=== PATIENT | male | born 1980 | race Caucasian/White ===

== ENCOUNTER 2017-09-19 21:06 | Emergency (ER) | payer MEDICAID ==
[~2017-09-19] VITALS: Ht 172.7 cm; Wt 59.1 kg
[2017-09-19] MEDS ORDERED: ibuprofen tablet 400 MG TABLET PO ONE (21:15)
[2017-09-19] MEDS ORDERED: acetaminophen 325mg tablet PO ONE (21:15)
[2017-09-19] MEDS ORDERED: HYDROcodone/acetaminophen 10/325mg tab PO ONE (21:45)
[2017-09-19] MEDS ORDERED: ondansetron 4mg rapidly disintigrating tab PO ONE (21:45)
[2017-09-19] MEDS ORDERED: IBUP-1986 PO (21:55)
[2017-09-19] MEDS ORDERED: ONDA4TAB12 PO (21:55)
[2017-09-19] MEDS ORDERED: HYDR-3965 PO (21:55)
[2017-09-19 22:20] VITALS: BP 124/86
== END 2017-09-19 22:23 | disposition home or self-care (01) ==
LOC: ER 21:06
DX: S92.001A Unspecified fracture of right calcaneus, initial encounter for closed fracture (principal); Z79.899 Other long term (current) drug therapy; W17.89XA Other fall from one level to another, initial encounter; Y93.89 Activity, other specified; Y92.89 Other specified places as the place of occurrence of the external cause; Y99.8 Other external cause status
CPT/HCPCS: 29515; 73610; 73650; 99284

== ENCOUNTER 2017-09-25 13:40 | Outpatient (CLI) | payer MEDICAID ==
[~2017-09-25] VITALS: Ht 172.7 cm; Wt 100.1 kg
[~2017-09-25 13:40] MED LIST: HYDR-3965 PO; IBUP-1986 PO; ONDA4TAB12 PO
[2017-09-25 14:12] VITALS: BP 135/77
== END 2017-09-25 14:55 | disposition home or self-care (01) ==
LOC: ORTHO 13:40
PROVIDERS: ATTEND Nurse Practitioner Family
DX: S92.041A Displaced other fracture of tuberosity of right calcaneus, initial encounter for closed fracture (principal); F17.200 Nicotine dependence, unspecified, uncomplicated; F41.9 Anxiety disorder, unspecified; Z56.0 Unemployment, unspecified; Z79.899 Other long term (current) drug therapy; X58.XXXA Exposure to other specified factors, initial encounter; Y93.89 Activity, other specified; Y92.89 Other specified places as the place of occurrence of the external cause; Y99.8 Other external cause status
CPT/HCPCS: 99213; A6449

== ENCOUNTER 2017-09-29 20:16 | Emergency (ER) | payer MEDICAID ==
[~2017-09-29] VITALS: Ht 591.1 cm; Wt 99.0 kg
[2017-09-29 20:25] VITALS: BP 151/83
[2017-09-29] MEDS ORDERED: CEPH500C5 PO (21:02)
[2017-09-29] MEDS ORDERED: HYDR-569 PO (21:02)
[2017-09-29] MEDS ORDERED: IBUP-1986 PO (21:02)
[2017-09-29] MEDS ORDERED: SULF1TAB49 PO (21:02)
== END 2017-09-29 21:39 | disposition home or self-care (01) ==
LOC: ER 20:17
DX: S92.001A Unspecified fracture of right calcaneus, initial encounter for closed fracture (principal); L03.115 Cellulitis of right lower limb; G62.9 Polyneuropathy, unspecified; F17.200 Nicotine dependence, unspecified, uncomplicated; Z87.442 Personal history of urinary calculi; Z86.14 Personal history of Methicillin resistant Staphylococcus aureus infection; Z56.0 Unemployment, unspecified; Z79.899 Other long term (current) drug therapy; W01.0XXA Fall on same level from slipping, tripping and stumbling without subsequent striking against object, initial encounter; Y93.89 Activity, other specified; Y92.89 Other specified places as the place of occurrence of the external cause; Y99.8 Other external cause status
CPT/HCPCS: 29515; 73630; 99284; A6449

== ENCOUNTER 2017-10-05 11:33 | Observation (INO) | payer MEDICAID ==
[~2017-10-05] VITALS: Ht 152.4 cm; Wt 8.0 kg
[2017-10-05] VITALS (16 sets, daily range): BP systolic 102–131; BP diastolic 52–88
[~2017-10-05 11:33] MED LIST changes: +CEPH500C5 PO; +Cefazolin 2GM/50ML dext iso,osmotic IVPB IV ONE; +HYDR-569 PO; +SULF1TAB49 PO; +albuterol 2.5 MG/3 ML nebule NEB ONE; +famotidine 20mg tablet PO ONE; +ringers solution, lacted 1,000 ML IV SCH; +vancomycin inj 1,500 MG in normal saline 300ml IV soln IV ONE
[2017-10-05 12:21] LABS: BASOPHILS % (AUTO) 0.5 % (0-1); EOSINOPHILS # (AUTO) 0.1 X10'3 (0-0.9); EOSINOPHILS % (AUTO) 1.8 % (0-6); HEMATOCRIT 43.4 % (42.0-52.0); HEMOGLOBIN 15.1 g/dl (14.0-17.9); LYMPHOCYTES # (AUTO) 1.8 X10'3 (1.1-4.8); LYMPHOCYTES % (AUTO) 24.9 % (21-51); MEAN CORPUSCULAR HEMOGLOBIN 31.9 PG (27.0-31.0); MEAN CORPUSCULAR HGB CONC 34.9 % (33.0-36.5); MEAN CORPUSCULAR VOLUME 91.4 FL (78-98); MEAN PLATELET VOLUME 6.9 FL (7.4-10.4); MONOCYTES # (AUTO) 0.7 X10'3 (0-0.9); MONOCYTES % (AUTO) 9.8 % (2-12); NEUTROPHILS # (AUTO) 4.5 X10'3 (1.8-7.7); PLATELET COUNT 328 X10'3 (140-440); RED BLOOD COUNT 4.74 X10'6 (4.70-6.10); RED CELL DISTRIBUTION WIDTH 13.5 % (11.5-14.5); WHITE BLOOD COUNT 7.2 X10'3 (4.5-11.0)
[2017-10-05 12:31] LABS: INR 1.1 INR; PRE OP PARTIAL THROMB. TIME 26 SECONDS (22-35); PROTHROMBIN TIME 11.4 SECONDS (9.0-12.0)
[2017-10-05 12:35] LABS: ALANINE AMINOTRANSFERASE 43 U/L (12-78); ALBUMIN 4.3 G/DL (3.4-5.0); ALBUMIN/GLOBULIN RATIO 1.1 (1.1-1.5); ALKALINE PHOSPHATASE 92 IU/L (46-116); ANION GAP 11 (8-16); ASPARTATE AMINO TRANSFERASE 23 U/L (10-37); BILIRUBIN,TOTAL 0.7 MG/DL (0.1-1.0); BLOOD UREA NITROGEN 20 MG/DL (7-18); BUN/CREATININE RATIO 15.3 (5.4-32.0); CALCIUM 9.2 MG/DL (8.5-10.1); CHLORIDE 101 MMOL/L (99-107); CREATININE 1.31 MG/DL (0.60-1.10); GLUCOSE 112 MG/DL (70-104); POTASSIUM 3.9 MMOL/L (3.5-5.1); SODIUM 134 MMOL/L (135-145); TOTAL CARBON DIOXIDE 22.5 MMOL/L (24-32); TOTAL PROTEIN 8.2 G/DL (6.4-8.2); eGFR 61 ML/MIN
[2017-10-05] MEDS ORDERED: LIDOcaine 1% (10mg/ml) 2ml vial ONE (12:38)
[2017-10-05] MEDS ORDERED: CEPH-572 PO (12:39)
[2017-10-05] MEDS ORDERED: HYDR-569 PO (12:41)
[2017-10-05] MEDS ORDERED: IBUP-1986 PO (12:41)
[2017-10-05] MEDS ORDERED: SULF1TAB49 PO (12:42)
[2017-10-05] MEDS ORDERED: ONDA8TAB9 PO (12:44)
[2017-10-05] MEDS ORDERED: ceFAZolin 1000mg inj ONE (14:34)
[2017-10-05] MEDS ORDERED: BUPIVAcaine/PF 2.5mg/ml (0.25%) 10ml vial ONE (14:34)
[2017-10-05] MEDS ORDERED: sevoflurane 250ml liquid IH ONE (15:36)
[2017-10-05] MEDS ORDERED: cloNIDine hcl/PF 100mcg/ml inj ONE (15:39)
[2017-10-05] MEDS ORDERED: ROPIVAcaine 0.5% (5mg/ml) 30ml vial ONE (15:40)
[2017-10-05] MEDS ORDERED: midazolam 2 mg/2 ml injection ONE (15:41)
[2017-10-05] MEDS ORDERED: fentaNYL/PF 50MCG/1 ML 2ML syringe ONE (15:41)
[2017-10-05] MEDS ORDERED: propofol inj 20 ML IV ONE (16:31)
[2017-10-05] MEDS ORDERED: fentaNYL /PF 50mcg/ml 5ml ampule ONE (16:33)
[2017-10-05] MEDS ORDERED: bisacodyl 10mg suppository rectal RC PRN (17:35)
[2017-10-05] MEDS ORDERED: HYDROmorphone inj. 0.5 MG/0.5 ML DISP.SYRIN IV PRN ×2 (17:35)
[2017-10-05] MEDS ORDERED: diphenhydrAMINE 25mg capsule PO PRN ×2 (17:35)
[2017-10-05] MEDS ORDERED: oxyCODONE IR 5mg (immed. release) tablet PO PRN (17:35)
[2017-10-05] MEDS ORDERED: ondansetron/PF 4mg/2ml inj IV PRN ×2 (17:35→18:40)
[2017-10-05] MEDS ORDERED: magnesium hydroxide 30ml (MOM) UD suspension PO PRN (17:35)
[2017-10-05] MEDS ORDERED: acetaminophen 325mg tablet PO PRN (17:35)
[2017-10-05] MEDS ORDERED: meperidine/PF 25mg/ml syringe ONE (18:17)
[2017-10-05] MEDS ORDERED: ringers solution, lacted 1,000 ML IV SCH (18:38)
[2017-10-05] MEDS ORDERED: meperidine/PF 25mg/ml syringe IV PRN ×3 (18:40)
[2017-10-05] MEDS ORDERED: proCHLORperazine 10 MG/2 ml inj IV PRN (18:40)
[2017-10-05] MEDS ORDERED: morphine 4 MG/ML inj SYRINge IV PRN ×2 (18:40)
[2017-10-05] MEDS: oxyCODONE IR 5mg (immed. release) tablet PO PRN ×2 (19:03→23:44)
[2017-10-05] MEDS: potassium cl 20mEq in 1/2 NS 1,000 ML IV SCH (19:04)
[2017-10-05] MEDS ORDERED: vancomycin/NS 1 GM ADD-VANTAGE 250 ML IV SCH (20:00)
[2017-10-05] MEDS: sennosides 8.6mg tablet PO SCH (21:28)
[2017-10-05] MEDS: acetaminophen 325mg tablet PO SCH (21:28)
[2017-10-05] MEDS ORDERED: HYDROmorphone 1 mg/ml syringe ONE (21:31)
[2017-10-05] MEDS: ceFAZolin 1GM/D5W- ADD-VANTAGE 50 ML IV SCH (23:44)
[2017-10-06 02:00] VITALS: BP 100/53
[2017-10-06] MEDS: acetaminophen 325mg tablet PO SCH ×4 (02:09→19:51)
[2017-10-06] MEDS ORDERED: HYDROmorphone 1 mg/ml syringe ONE ×2 (02:26→21:52)
[2017-10-06] MEDS: potassium cl 20mEq in 1/2 NS 1,000 ML IV SCH ×3 (04:37→17:26)
[2017-10-06] MEDS: oxyCODONE IR 5mg (immed. release) tablet PO PRN ×6 (04:37→23:51)
[2017-10-06 06:00] VITALS: BP 105/60
[2017-10-06] MEDS: aspirin 325mg tablet PO SCH (08:09)
[2017-10-06] MEDS: ceFAZolin 1GM/D5W- ADD-VANTAGE 50 ML IV SCH (08:10)
[2017-10-06 10:00] VITALS: BP 108/66
[2017-10-06 18:00] VITALS: BP 114/72
[2017-10-06] MEDS: sennosides 8.6mg tablet PO SCH (19:50)
[2017-10-06] MEDS: celeCOXIB 100mg capsule PO SCH (19:51)
[2017-10-06 22:00] VITALS: BP 115/49
[2017-10-07] MEDS: potassium cl 20mEq in 1/2 NS 1,000 ML IV SCH ×2 (01:35→08:03)
[2017-10-07] MEDS: acetaminophen 325mg tablet PO SCH ×2 (01:58→08:03)
[2017-10-07] MEDS: oxyCODONE IR 5mg (immed. release) tablet PO PRN ×2 (04:02→08:02)
[2017-10-07 06:00] VITALS: BP 114/55
[2017-10-07] MEDS ORDERED: HYDR-565 PO (06:48)
[2017-10-07] MEDS ORDERED: ASPI-1 PO (06:48)
[2017-10-07] MEDS: celeCOXIB 100mg capsule PO SCH (08:03)
[2017-10-07] MEDS: aspirin 325mg tablet PO SCH (08:03)
[2017-10-07] MEDS ORDERED: acetaminophen 325mg tablet PO PRN (17:35)
== END 2017-10-07 11:15 | disposition home or self-care (01) ==
LOC: PAS 11:33 → ORTHO 4S 17:35
PROVIDERS: ADMIT Orthopaedic Surgery; ATTEND Orthopaedic Surgery
DX: S92.041A Displaced other fracture of tuberosity of right calcaneus, initial encounter for closed fracture (principal); F41.9 Anxiety disorder, unspecified; X58.XXXA Exposure to other specified factors, initial encounter; Y93.89 Activity, other specified; Y92.89 Other specified places as the place of occurrence of the external cause; Y99.8 Other external cause status
CPT/HCPCS: 28420; 36415; 71046; 73700; 80053; 85025; 85610; 85730; 93005; 96365; 96366; 96367; 96375; 97116; 97162; 97530; A6449; C1713; G0378; J0690; J0735; J1170; J2175; J2250; J2270; J2405; J2704; J2795; J3010; J3370; J3490; J7120; A7000

== ENCOUNTER 2017-10-14 13:55 | Outpatient (CLI) | payer MEDICAID ==
[~2017-10-14 13:55] MED LIST changes: +ASPI-1 PO; +CEPH-572 PO; -Cefazolin 2GM/50ML dext iso,osmotic IVPB IV ONE; +HYDR-565 PO; +ONDA8TAB9 PO; -albuterol 2.5 MG/3 ML nebule NEB ONE; -famotidine 20mg tablet PO ONE; -ringers solution, lacted 1,000 ML IV SCH; -vancomycin inj 1,500 MG in normal saline 300ml IV soln IV ONE
[2017-10-14 14:00] VITALS: BP 125/75
== END 2017-10-14 15:11 | disposition home or self-care (01) ==
LOC: ORTHO 13:55
PROVIDERS: ATTEND Nurse Practitioner Family
DX: S92.041D Displaced other fracture of tuberosity of right calcaneus, subsequent encounter for fracture with routine healing (principal); M79.89 Other specified soft tissue disorders; F17.210 Nicotine dependence, cigarettes, uncomplicated; Z56.0 Unemployment, unspecified; Z72.89 Other problems related to lifestyle; X58.XXXD Exposure to other specified factors, subsequent encounter
CPT/HCPCS: 73620

== ENCOUNTER 2017-10-21 14:14 | Outpatient (CLI) | payer MEDICAID ==
[~2017-10-21 14:14] MED LIST changes: -CEPH500C5 PO; -HYDR-3965 PO; -ONDA4TAB12 PO
[2017-10-21 14:23] VITALS: BP 143/74
== END 2017-10-21 15:23 | disposition home or self-care (01) ==
LOC: ORTHO 14:14
PROVIDERS: ATTEND Nurse Practitioner Family
DX: S92.041 Displaced other fracture of tuberosity of right calcaneus (principal); F17.210 Nicotine dependence, cigarettes, uncomplicated; Z72.89 Other problems related to lifestyle; Z56.0 Unemployment, unspecified; W10.8XXD Fall (on) (from) other stairs and steps, subsequent encounter
CPT/HCPCS: 99214; A6449

== ENCOUNTER 2017-10-28 11:36 | Outpatient (CLI) | payer MEDICAID ==
[2017-10-28 11:36] VITALS: BP 136/96
== END 2017-10-28 12:15 | disposition home or self-care (01) ==
LOC: ORTHO 11:36
PROVIDERS: ATTEND Nurse Practitioner Family
DX: S92.041D Displaced other fracture of tuberosity of right calcaneus, subsequent encounter for fracture with routine healing (principal); F17.210 Nicotine dependence, cigarettes, uncomplicated; Z56.0 Unemployment, unspecified; Z72.89 Other problems related to lifestyle; Z79.82 Long term (current) use of aspirin; W19.XXXD Unspecified fall, subsequent encounter
CPT/HCPCS: 73650; 99213; A6446; A6449

== ENCOUNTER 2017-11-04 11:33 | Outpatient (CLI) | payer MEDICAID ==
[2017-11-04 11:33] VITALS: BP 133/85
== END 2017-11-04 12:05 | disposition home or self-care (01) ==
LOC: ORTHO 11:33
PROVIDERS: ATTEND Nurse Practitioner Family
DX: S92.044D Nondisplaced other fracture of tuberosity of right calcaneus, subsequent encounter for fracture with routine healing (principal); F10.10 Alcohol abuse, uncomplicated; F17.210 Nicotine dependence, cigarettes, uncomplicated; Z72.89 Other problems related to lifestyle; Z56.0 Unemployment, unspecified; Z79.82 Long term (current) use of aspirin; X58.XXXD Exposure to other specified factors, subsequent encounter
CPT/HCPCS: 99213; A4590

== ENCOUNTER 2017-11-18 11:13 | Outpatient (CLI) | payer MEDICAID ==
[2017-11-18 11:13] VITALS: BP 157/96
[~2017-11-18 11:13] MED LIST changes: -HYDR-565 PO
== END 2017-11-18 12:15 | disposition home or self-care (01) ==
LOC: ORTHO 11:13
PROVIDERS: ATTEND Nurse Practitioner Family
DX: S92.044D Nondisplaced other fracture of tuberosity of right calcaneus, subsequent encounter for fracture with routine healing (principal); M85.88 Other specified disorders of bone density and structure, other site; F17.210 Nicotine dependence, cigarettes, uncomplicated; Z56.0 Unemployment, unspecified; Z72.89 Other problems related to lifestyle; Z79.82 Long term (current) use of aspirin; W17.2XXD Fall into hole, subsequent encounter
CPT/HCPCS: 73650; 99214; A4590; A6449

== ENCOUNTER 2017-12-02 12:01 | Outpatient (CLI) | payer MEDICAID ==
[2017-12-02 11:21] VITALS: BP 117/76
== END 2017-12-02 12:15 | disposition home or self-care (01) ==
LOC: ORTHO 12:01
PROVIDERS: ATTEND Nurse Practitioner Family
DX: S92.044D Nondisplaced other fracture of tuberosity of right calcaneus, subsequent encounter for fracture with routine healing (principal); F17.210 Nicotine dependence, cigarettes, uncomplicated; Z72.89 Other problems related to lifestyle; Z56.0 Unemployment, unspecified; Z79.82 Long term (current) use of aspirin; W17.89XD Other fall from one level to another, subsequent encounter
CPT/HCPCS: 73650; 99213; A4590

== ENCOUNTER 2017-12-23 11:15 | Outpatient (CLI) | payer MEDICAID ==
[~2017-12-23 11:15] MED LIST changes: +HYDR-4383 PO; -HYDR-569 PO
[2017-12-23 11:20] VITALS: BP 124/80
== END 2017-12-23 12:09 | disposition home or self-care (01) ==
LOC: ORTHO 11:15
PROVIDERS: ATTEND Nurse Practitioner Family
DX: S92.041 Displaced other fracture of tuberosity of right calcaneus (principal); F17.210 Nicotine dependence, cigarettes, uncomplicated; Z72.89 Other problems related to lifestyle; Z56.0 Unemployment, unspecified; Z79.82 Long term (current) use of aspirin; W17.89XD Other fall from one level to another, subsequent encounter
CPT/HCPCS: 73650; 99213; A4590

== ENCOUNTER 2017-12-30 10:39 | Outpatient (CLI) | payer MEDICAID ==
[2017-12-30 10:29] VITALS: BP 132/81
== END 2017-12-30 11:24 | disposition home or self-care (01) ==
LOC: ORTHO 10:39
PROVIDERS: ATTEND Nurse Practitioner Family
DX: S92.041 Displaced other fracture of tuberosity of right calcaneus (principal); M85.88 Other specified disorders of bone density and structure, other site; F12.10 Cannabis abuse, uncomplicated; Z56.0 Unemployment, unspecified; Z72.89 Other problems related to lifestyle; Z79.82 Long term (current) use of aspirin; X58.XXXD Exposure to other specified factors, subsequent encounter
CPT/HCPCS: 73650; 99213; L4360

== ENCOUNTER 2018-01-20 10:49 | Outpatient (CLI) | payer MEDICAID ==
[2018-01-20 10:53] VITALS: BP 145/92
== END 2018-01-20 11:35 | disposition home or self-care (01) ==
LOC: ORTHO 10:49
PROVIDERS: ATTEND Nurse Practitioner Family
DX: S92.041 Displaced other fracture of tuberosity of right calcaneus (principal); M85.871 Other specified disorders of bone density and structure, right ankle and foot; F17.210 Nicotine dependence, cigarettes, uncomplicated; Z56.0 Unemployment, unspecified; Z72.89 Other problems related to lifestyle; Z79.82 Long term (current) use of aspirin; W17.2XXD Fall into hole, subsequent encounter
CPT/HCPCS: 73650; 99213

== ENCOUNTER 2018-01-27 13:14 | Outpatient (CLI) | payer MEDICAID ==
[2018-01-27 10:59] VITALS: BP 154/92
== END 2018-01-27 13:15 | disposition home or self-care (01) ==
LOC: ORTHO 13:14
PROVIDERS: ATTEND Nurse Practitioner Family
DX: S92.041 Displaced other fracture of tuberosity of right calcaneus (principal); M85.871 Other specified disorders of bone density and structure, right ankle and foot; F17.210 Nicotine dependence, cigarettes, uncomplicated; Z56.0 Unemployment, unspecified; Z72.89 Other problems related to lifestyle; Z79.82 Long term (current) use of aspirin; W17.2XXD Fall into hole, subsequent encounter
CPT/HCPCS: 73650; 99213

== ENCOUNTER 2018-02-24 11:28 | Outpatient (CLI) | payer MEDICAID ==
[2018-02-24 11:27] VITALS: BP 146/99
== END 2018-02-24 12:05 | disposition home or self-care (01) ==
LOC: ORTHO 11:28
PROVIDERS: ATTEND Nurse Practitioner Family
DX: S92.001K Unspecified fracture of right calcaneus, subsequent encounter for fracture with nonunion (principal); F17.210 Nicotine dependence, cigarettes, uncomplicated; Z56.0 Unemployment, unspecified; Z72.89 Other problems related to lifestyle; Z79.82 Long term (current) use of aspirin; W17.2XXD Fall into hole, subsequent encounter
CPT/HCPCS: 73650; 99213

== ENCOUNTER 2018-04-26 15:39 | Outpatient (CLI) | payer MEDICAID ==
[2018-04-26 15:35] VITALS: BP 112/94
== END 2018-04-26 16:09 | disposition home or self-care (01) ==
LOC: ORTHO 15:39
PROVIDERS: ATTEND Nurse Practitioner Family
DX: S92.041 Displaced other fracture of tuberosity of right calcaneus (principal); F17.210 Nicotine dependence, cigarettes, uncomplicated; Z56.0 Unemployment, unspecified; Z72.89 Other problems related to lifestyle; W01.0XXD Fall on same level from slipping, tripping and stumbling without subsequent striking against object, subsequent encounter
CPT/HCPCS: 73650; 99213

== ENCOUNTER 2018-05-24 10:38 | Outpatient (CLI) | payer MEDICAID ==
[2018-05-24 10:22] VITALS: BP 130/78
== END 2018-05-24 11:15 | disposition home or self-care (01) ==
LOC: ORTHO 10:38
PROVIDERS: ATTEND Nurse Practitioner Family
DX: S92.001G Unspecified fracture of right calcaneus, subsequent encounter for fracture with delayed healing (principal); F17.210 Nicotine dependence, cigarettes, uncomplicated; Z56.0 Unemployment, unspecified; Z72.89 Other problems related to lifestyle; W01.0XXD Fall on same level from slipping, tripping and stumbling without subsequent striking against object, subsequent encounter
CPT/HCPCS: 73650; 99213

== ENCOUNTER 2018-06-23 08:59 | Outpatient (CLI) | payer MEDICAID ==
[2018-06-23 09:04] VITALS: BP 139/81
== END 2018-06-23 09:45 | disposition home or self-care (01) ==
LOC: ORTHO 08:59
PROVIDERS: ATTEND Orthopaedic Surgery
DX: S92.001G Unspecified fracture of right calcaneus, subsequent encounter for fracture with delayed healing (principal); F17.210 Nicotine dependence, cigarettes, uncomplicated; M85.88 Other specified disorders of bone density and structure, other site; Z56.0 Unemployment, unspecified; Z72.89 Other problems related to lifestyle; Z79.82 Long term (current) use of aspirin; Z79.899 Other long term (current) drug therapy; W01.0XXD Fall on same level from slipping, tripping and stumbling without subsequent striking against object, subsequent encounter
CPT/HCPCS: 73650; 99213

== ENCOUNTER 2019-08-11 12:38 | Emergency (ER) | payer MEDICAID ==
[~2019-08-11] VITALS: Ht 172.7 cm; Wt 109.1 kg
--- NOTE | 2019-08-11 15:03 | NUR ---
Pt out to CT
[2019-08-11 15:38] LABS: BASOPHILS % (AUTO) 0.5 % (0-1); EOSINOPHILS # (AUTO) 0.1 X10'3 (0-0.9); EOSINOPHILS % (AUTO) 0.7 % (0-6); HEMATOCRIT 46.3 % (42.0-52.0); HEMOGLOBIN 15.5 g/dl (14.0-17.9); LYMPHOCYTES # (AUTO) 2.7 X10'3 (1.1-4.8); LYMPHOCYTES % (AUTO) 27.3 % (21-51); MEAN CORPUSCULAR HGB CONC 33.5 g/dL (33.0-36.5); MEAN CORPUSCULAR VOLUME 89.5 FL (78-98); MEAN PLATELET VOLUME 7.2 FL (7.4-10.4); MONOCYTES # (AUTO) 0.7 X10'3 (0-0.9); MONOCYTES % (AUTO) 7.5 % (2-12); NEUTROPHILS # (AUTO) 6.2 X10'3 (1.8-7.7); PLATELET COUNT 257 X10'3 (140-440); RED BLOOD COUNT 5.17 X10'6 (4.70-6.10); RED CELL DISTRIBUTION WIDTH 13.6 % (11.5-14.5); WHITE BLOOD COUNT 9.8 X10'3 (4.5-11.0)
[2019-08-11 15:49] LABS: ALANINE AMINOTRANSFERASE 32 U/L (12-78); ALBUMIN 4.3 G/DL (3.4-5.0); ALBUMIN/GLOBULIN RATIO 1.2 (1.1-1.5); ALKALINE PHOSPHATASE 75 IU/L (46-116); ANION GAP 11 (8-16); ASPARTATE AMINO TRANSFERASE 23 U/L (10-37); BILIRUBIN,TOTAL 0.3 MG/DL (0.1-1.0); BLOOD UREA NITROGEN 26 MG/DL (7-18); BUN/CREATININE RATIO 23.6 (5.4-32.0); CALCIUM 9.3 MG/DL (8.5-10.1); CHLORIDE 100 MMOL/L (99-107); GLUCOSE 91 MG/DL (70-104); SODIUM 135 MMOL/L (135-145); TOTAL CARBON DIOXIDE 24.1 MMOL/L (24-32); TOTAL PROTEIN 7.9 G/DL (6.4-8.2); eGFR 74 ML/MIN
[2019-08-11] MEDS ORDERED: TETanus/Pertussis (Acell)/Diphther VAC/PF (Tdap-Adult) 0.5ml syringe IMVAC ONE (15:55)
[2019-08-11 15:57] LABS: MAGNESIUM 2.2 MG/DL (1.5-2.4)
[2019-08-11 16:33] VITALS: BP 135/99
== END 2019-08-11 16:28 | disposition home or self-care (01) ==
LOC: ER 12:39
DX: S00.81XA Abrasion of other part of head, initial encounter (principal); R55 Syncope and collapse; G62.9 Polyneuropathy, unspecified; Z87.442 Personal history of urinary calculi; Z86.14 Personal history of Methicillin resistant Staphylococcus aureus infection; Z72.89 Other problems related to lifestyle; Z56.0 Unemployment, unspecified; Z79.82 Long term (current) use of aspirin; Z79.899 Other long term (current) drug therapy; X58.XXXA Exposure to other specified factors, initial encounter; Y93.89 Activity, other specified; Y92.89 Other specified places as the place of occurrence of the external cause; Y99.8 Other external cause status
CPT/HCPCS: 36415; 70450; 71045; 80053; 83735; 83880; 84484; 85025; 90471; 90715; 93005; 99285